=== PATIENT | female | born 1995 | race Asian ===

== ENCOUNTER 2021-04-26 09:05 | Outpatient (REF) | payer SELFPAY | END 2021-04-26 09:06 | disposition home or self-care (01) | LOC: HO.SCI 09:05 | PROVIDERS: Visit Provider Nurse Practitioner | DX: Z13.89 Encounter for screening for other disorder (principal) ==

== ENCOUNTER 2021-05-15 13:28 | Outpatient (REF) | payer OTHER, SELFPAY ==
--- NOTE | ~2021-05-15 | US_ITS ---
EXAMINATION: US PELVIS TRANSVAGINAL CLINICAL INFORMATION: Dysmenorrhea COMPARISON: None. TECHNIQUE: Transcutaneous and transvaginal pelvic ultrasound. Transvaginal scanning was performed after voiding to better evaluate the endometrium and adnexa. FINDINGS: The uterus measures 8.3 x 3.8 x 5.1 cm. The uterus is retroverted. No suspicious abnormalities region of the cervix. The uterine contour is smooth. The endometrium measures 1.6 cm. No focal abnormalities within the myometrium. The right ovary measures approximately 5.5 x 2.7 x 3.3 cm. The calculated right ovarian volume is approximately 26 mL. Multiple follicles/cysts are present largest measuring 1.5 x 2.0 cm in size. No suspicious adnexal mass. Normal vascularity. The left ovary measures 2.5 x 2.2 x 3.2 cm. The calculated left ovarian volume is approximately 9.2 mL. Multiple cysts/follicles are present with no suspicious solid mass. Normal vascularity. There is a small amount of free pelvic fluid. US/US pelvic and transvaginal IMPRESSION: No significant abnormality appreciated.
== END 2021-05-15 13:29 | disposition home or self-care (01) ==
LOC: HO.US 13:28
PROVIDERS: Visit Provider Nurse Practitioner
DX: N94.6 Dysmenorrhea, unspecified (principal)
CPT/HCPCS: 76830; 76856